=== PATIENT | male | born 1945 | race Caucasian/White ===

== ENCOUNTER 2025-05-14 06:42 | Inpatient (IN) | payer OTHER, MEDICARE ==
[~2025-05-14] VITALS: Ht 170.2 cm; Wt 87.7 kg
[~2025-05-14 06:42] MED LIST: DABI150C PO; GABA300C PO; HYDR-4383 PO; MAGN500C4 PO; METO50TA7 PO; TURMERIC
--- NOTE | 2025-05-14 07:21 | Physician Documentation ---
History of Present Illness ~ Chief Complaint: Flu Symptoms Stated Complaint: FLU Time Seen by MD: 06:59 HPI 80-year-old male, history of Parkinson's, traveling with his for a wedding, presenting with 4 days of fever and generalized weakness He reports that over the past 4 days he has been feeling generally ill. He reports having fevers, congestion, sore throat, productive cough with yellow spu ryan. He reports generalized weakness to the point today where he was not able to even get up and walk. He does report having a mild headache and pain in the muscles of his neck and shoulders. He reports pain in his joints. He feels generally achy and weak. No known sick contacts. No abdominal pain, nausea vomiting or diarrhea. No urinary symptoms. He thinks he has been eating and drinking okay. He does have a history of atrial fibrillation and is on blood thinners. He took Tylenol without relief. Medication Reconciliation Allergies: Coded Allergies: meloxicam (Verified Allergy, Unknown, 07/01/14) Scheduled Apixaban (Eliquis), 1 TAB PO Q12H, (Reported) Carbidopa/Levodopa (Carbidopa-Levo ER 25-100 Tab), 1 TAB PO HS, (Reported) Carbidopa/Levodopa (Carbidopa-Levo 25-100 Mg Odt), 2.5 TAB PO Q8H, (Reported) Docusate Sodium (Colace), 1 CAP PO DAILY, (Reported) Gabapentin (Gabapentin), 1 CAP PO HS, (Reported) Gabapentin (Gabapentin), 1 CAP PO BID, (Reported) Lisinopril (Lisinopril), 0.5 TAB PO DAILY, (Reported) Magnesium Oxide (Magnesium), 1 CAP PO DAILY, (Reported) Pravastatin Sodium (Pravastatin Sodium), 1 TAB PO DAILY, (Reported) Discontinued Medications Dabigatran Etexilate Mesylate (Pradaxa), 150 MG PO BID, (Reported) Discontinued Reason: patient no longer taking Gabapentin (Neurontin), 300 MG PO BID, (Reported) Discontinued Reason: patient no longer taking Hydrocodone/Acetaminophen ([place] 5-325 Tablet), 1 TABLET PO TID, (Reported) Discontinued Reason: patient no longer taking Magnesium Oxide (Magnesium), 2 CAP PO DAILY, (Reported) Discontinued Reason: patient no longer taking Metoprolol Succinate* (Toprol Xl*), 0.5 TABLET PO DAILY, (Reported) Discontinued Reason: patient no longer taking [Turmeric], (Reported) Discontinued Reason: patient no longer taking Past Medical History Past Medical History: Kidney Stones Past Surgical History: noncontributory Alcohol Use: None Lives with: Spouse Lives In: Home Review of Systems Constitutional: Reports: fever ENT: Reports: nose congestion, throat pain Respiratory: Reports: cough; Denies: shortness of breath Gastrointestinal: Reports: no symptoms reported Physical Exam Vital Signs: Temperature: 98.7, Source: Oral, Heart Rate: 103, Respiratory Ra te: 18, BP: 132/76, Pulse Oximetry: 95, Weight: 88.640 Oxygen Flow Rate: 0 Physical Exam General: This is a tired appearing elderly man, at bedside HEENT: Atraumatic, oropharynx appears dry. Mild generalized posterior oropharyngeal erythema without unilateral swelling or white exudates Neck: No swelling or tender lymphadenopathy. He does have generalized tenderness on palpation of the muscles of the neck and shoulder bilateral Heart: Mild tachycardic, appears irregular, heart rate around 100 during my exam Lungs: Diminished breath sounds bilateral, normal work of breathing, frequent harsh cough, normal oxygen saturation on room air Abdomen: Soft, nondistended, nontender all quadrants Extremities: Warm and well-perfused, no edema Neuro: Alert and oriented, generalized weakness but no focal weakness. He does have a mild tremor in his extremities Psychiatric: Appears tired but is Calm and cooperative with exam Progress Results/Orders Results/Orders Orders - NELLI REYNOLDS MD CMP (05/14/25 07:11) Urinalysis, Cult If Indicated (05/14/25 07:11) Chest,Single View (05/14/25 07:12) Covid19 Binax Poc Result Entry (05/14/25 07:12) Normal Saline 1000ml (Sodium Chloride 10 (05/14/25 09:00) Page Hospitalist (05/14/25 08:58) Hgb A1c (05/14/25 07:00) MG (05/14/25 07:00) PBNP (05/14/25 07:00) PHOS (05/14/25 07:00) Completed Orders - NELLI REYNOLDS MD Cbc/Diff (05/14/25 07:11) LA (05/14/25 07:11) Chest,Single View (05/14/25 07:12) Man Diff (05/14/25 07:00) Acetaminophen 325mg Tablet (Tylenol Tabl (05/14/25 09:50) Medications Received in ER Medications (Trade) Dose Ordered Sig/Penelope Route PRN Reason Start Time Stop Time Status Last Admin Dose Admin Sodium Chloride 1,000 ml @ 100 mls/hr Q10H IV 05/14/25 09:00 05/14/25 09:15 100 MLS/HR (Tylenol tablet) 650 mg ONCE ONCE PO 05/14/25 09:50 05/14/25 09:51 DC 05/14/25 10:36 650 MG Vital Signs 05/14/25 05/14/25 05/14/25 05/14/25 06:45 06:56 09:20 10:20 Temp 98.7 98.7 Pulse 105 103 99 102 Resp 19 18 14 22 B/P (MAP) 127/81 132/76 (94) 143/93 (110) Pulse Ox 95 95 98 97 O2 Delivery Room Air* O2 Flow Rate 0 0 0 0 FiO2 21 Laboratory Tests Test 05/14/25 07:00 05/14/25 07:05 White Blood Count 6.9 Red Blood Count 4.44 L Hemoglobin 14.4 Hematocrit 41.5 L Mean Corpuscular Volume 93.5 Mean Corpuscular Hemoglobin 32.3 H Mean Corpuscular Hemoglobin Concent 34.6 Red Cell Distribution Width 14.5 Platelet Count 141 Mean Platelet Volume 9.6 Neutrophils (%) (Auto) 73.7 Lymphocytes (%) (Auto) 6.8 L Monocytes (%) (Auto) 18.8 H Eosinophils (%) (Auto) 0.1 Basophils (%) (Auto) 0.6 Neutrophils # (Auto) 5.1 Lymphocytes # (Auto) 0.5 L Monocytes # (Auto) 1.3 H Eosinophils # (Auto) 0.0 Basophils # (Auto) 0.0 CBC Comment Differential Total Cells Counted 100 Neutrophils % (Manual) 80.0 H Band Neutrophils % 1.0 Lymphocytes % (Manual) 3.0 L Monocytes % (Manual) 16.0 H Platelet Estimate Normal Red Blood Cell Morphology Normal Basophilic Stippling Sodium Level 136 Potassium Level 3.7 Chloride Level 102 Carbon Dioxide Level 25.8 Anion Gap 8 Blood Urea Nitrogen 16 Creatinine 1.04 Estimated GFR/1.73 m2 69 BUN/Creatinine Ratio 15.4 Glucose Level 103 Lactic Acid Level 1.1 Calcium Level 8.1 L Total Bilirubin 1.1 H Aspartate Amino Transf (AST/SGOT) 29 Alanine Aminotransferase (ALT/SGPT) 13 Alkaline Phosphatase 58 Total Protein 6.5 Albumin 3.5 Globulin 3.0 Albumin/Globulin Ratio 1.2 Chemistry Comments SARS-CoV-2 Antigen (Rapid) Positive A EKG/XRAY/CT/US/VASC/MRI Chest X-Ray : Additional Comments I personally reviewed the x-ray, and it shows: No focal consolidation or pneumonia, no pulmonary edema, normal mediastinum Consults/PCP Consults/PCP : Additional Comment Consult: I spoke to the internal medicine service, for admission in the hospital Medical Decision Making Differential Dx:Considerations: Include: Dehydration, Electrolyte imbalance, Influenza, Meningitis, Pneumonia, Respiratory failure, Sepsis, UTI, Viral Syndrome Assessment 80-year-old male presenting with generalized weakness, with cough and congestion and fevers. His workup does show he has COVID, which is likely the over oxygen cause of all of his symptoms. Chest x-ray without pneumonia. Labs without dangerous dehydration or electrolyte derangement. Urinalysis pending. Overall, given his significant weakness and difficulty walking he is not safe for discharge home. He will be admitted to the medicine service, started him on IV fluids for hydration, and admitted for further care. Departure Disposition: ADMITTED INPATIENT Impression: Primary Impression: COVID-19 Additional Impressions: Generalized weakness Dehydration Referrals: NO PRIMARY CARE PROVIDER (PCP) Signature Scribe Signature: na Attestation: NELLI Guerrero MD May 14, 2025 07:21
[2025-05-14 07:33] LABS: BASOPHILS % (AUTO) 0.6 % (0-1); EOSINOPHILS % (AUTO) 0.1 % (0-6); HEMATOCRIT 41.5 % (42.0-52.0); HEMOGLOBIN 14.4 g/dl (14.0-17.9); LYMPHOCYTES # (AUTO) 0.5 X10'3 (1.1-4.8); LYMPHOCYTES % (AUTO) 6.8 % (21-51); MEAN CORPUSCULAR HEMOGLOBIN 32.3 PG (27.0-31.0); MEAN CORPUSCULAR HGB CONC 34.6 g/dL (33.0-36.5); MEAN CORPUSCULAR VOLUME 93.5 FL (78-98); MEAN PLATELET VOLUME 9.6 FL (7.4-10.4); MONOCYTES # (AUTO) 1.3 X10'3 (0-0.9); MONOCYTES % (AUTO) 18.8 % (2-12); NEUTROPHILS # (AUTO) 5.1 X10'3 (1.8-7.7); NEUTROPHILS % (AUTO) 73.7 % (42-75); PLATELET COUNT 141 X10'3 (140-440); RED BLOOD COUNT 4.44 X10'6 (4.70-6.10); RED CELL DISTRIBUTION WIDTH 14.5 % (11.5-14.5); WHITE BLOOD COUNT 6.9 X10'3 (4.5-11.0)
[2025-05-14 07:38] LABS: ALANINE AMINOTRANSFERASE 13 U/L (12-78); ALBUMIN 3.5 G/DL (3.4-5.0); ALBUMIN/GLOBULIN RATIO 1.2 (1.1-1.5); ALKALINE PHOSPHATASE 58 IU/L (46-116); ANION GAP 8 (8-16); ASPARTATE AMINO TRANSFERASE 29 U/L (10-37); BILIRUBIN,TOTAL 1.1 MG/DL (0.1-1.0); BLOOD UREA NITROGEN 16 MG/DL (7-18); BUN/CREATININE RATIO 15.4 (10.0-20.0); CALCIUM 8.1 MG/DL (8.5-10.1); CHLORIDE 102 MMOL/L (99-107); CREATININE 1.04 MG/DL (0.60-1.10); GLUCOSE 103 MG/DL (70-104); POTASSIUM 3.7 MMOL/L (3.5-5.1); SODIUM 136 MMOL/L (135-145); TOTAL CARBON DIOXIDE 25.8 MMOL/L (24-32); TOTAL PROTEIN 6.5 G/DL (6.4-8.2); eCRCL 53 ML/MIN; eGFR 69 ML/MIN
--- NOTE | 2025-05-14 08:14 | RADIOLOGY REPORT ---
EXAM: XR Chest, 1 View CLINICAL INDICATION: Pain TECHNIQUE: Frontal view of the chest. COMPARISON: No relevant prior studies available. FINDINGS: LUNGS AND PLEURAL SPACES: Unremarkable. No consolidation. No pneumothorax. HEART: Unremarkable. No cardiomegaly. MEDIASTINUM: Unremarkable. Normal mediastinal contour. BONES/JOINTS: Unremarkable. No acute fracture. IMPRESSION: No acute cardiopulmonary process.
[2025-05-14 08:18] LABS: PLATELET ESTIMATE NORMAL; TOTAL CELLS COUNTED 100
[2025-05-14] MEDS: normal saline 1000ml 1,000 ML IV SCH ×2 (09:15→10:05)
--- NOTE | 2025-05-14 10:00 | HISTORY AND PHYSICAL ---
History & Physical Providers to Chief complaint, cough fever History of Present Illness Reason for Admit\Complaint: As above History of Present Illness This is a 80-year-old male, history of Parkinson's, atrial fibrillation on Pradaxa at home, history of chronic pain syndrome on opioids, history of kidney stones, bilateral renal cysts, hypertension, presented today to emergency department chief complaint fever cough, in addition patient is traveling with his for a wedding, presenting with 4 days of fever and generalized weakness He reports that over the past 4 days he has been feeling generally ill. He reports having fevers, congestion, sore throat, productive cough with yellow sputum. He reports generalized weakness to the point today where he was not able to even get up and walk. He does report having a mild headache and pain in the muscles of his neck and shoulders. He reports pain in his joints. He feels generally achy and weak. No known sick contacts. No abdominal pain, nausea vomiting or diarrhea. No urinary symptoms. He thinks he has been eating and drinking okay. He does have a history of atrial fibrillation and is on blood thinners. He took Tylenol without relief. In emergency department he was evaluated by physician was diagnosed with COVID infection, and decision was made to admit patient for further evaluation and treatment, no additional complaint or concern. Allergies: Coded Allergies: meloxicam (Verified Allergy, Unknown, 07/01/14) Active prescriptions I reviewed reconciled Home Medications Home Medications Active Reported [Turmeric] Magnesium (Magnesium Oxide) 500 Mg Capsule 2 Cap PO DAILY Toprol Xl* (Metoprolol Succinate) 50 Mg Tab.sr.24h 0.5 Tablet PO DAILY Pradaxa (Dabigatran Etexilate Mesylate) 150 Mg Capsule 150 Mg PO BID Neurontin (Gabapentin) 300 Mg Capsule 300 Mg PO BID [place] 5-325 Tablet (Hydrocodone/Acetaminophen) 1 Each Tablet 1 Tablet PO TID Past Medical History Past Medical History As in HPI Past Surgical History Surgical History Comment As in HPI Past Social History Social History Comment Deny illicit drug abuse tobacco alcohol use live with the family good social support Health Maintenance Health Maintenance Noncontributory ROS ROS Constitutional : positive for fever, chills and or weakness. No diaphoresis. Allergic/Immunologic, no lymphadenopathy, no hives, no skin eruptions. Eyes, no recent visual changes, no eye pain, no photophobia. Ears, nose, mouth, throat, no sore throat, no nosebleed, no ear pain. Cardiovascular, no palpitations, skipped beats, chest pain, no peripheral edema, Respiratory, no dyspnea, orthopnea, cough, hemoptysis, chest wall pain. Gastrointestinal, no abdominal pain, nausea, vomiting, constipation or diarrhea. : no dysuria, hematuria, pelvic pain, urethral d/c. Endocrine, no polyuria, polydipsia, recent unintentional weight gain or loss. Hematologic/Lymphatic, no petechiae, no enlarged lymph nodes, no bone pain. Integumentary, no rash, no skin lesions, Musculoskeletal, no muscle aches, or pain, no muscle cramps, no recent change in gait Neurological, no dizziness, no headache, no syncope, no paresthesia. Psychiatric, no delusions, visual hallucinations, or hearing hallucinations. ROS - in rest is as in HPI. Exam Vitals: Vital Signs Date Time Temp Pulse Resp B/P (MAP) Pulse Ox O2 Delivery O2 Flow Rate FiO2 05/14/25 09:20 99 14 143/93 (110) 98 0 05/14/25 06:56 98.7 Vital signs, stable ,afebrile. Pulse Oximetry reflects adequate oxygenation. BMI is 30, weight 88 kg General: well developed, well nourished. Awake , alert, and oriented x4, resting comfortably in the bed, in no acute distress . Skin: Warm, dry, no pallor, no rash or petechiae. HEENT: Atraumatic, normocephalic, EOMI, anicteric sclera B; pink conjunctiva; PERRLA, normal oropharynx, moist oral and nasal mucosa. Tympanic membrane , nose , throat clear. Neck: Trachea midline. Supple, full range of motion, no JVD, bruit , hepatojugular reflex , lymphadenopathy or masses, or other lesions Cardiac: Regular rhythm, regular rate no murmurs, rubs, or gallops. Normal S1 and S2, no S3 noticed. PMI is normal. Respiratory: Equal breath sounds bilaterally, no tachypnea; lungs clear to auscultation bilaterally, no wheezing ,rub or rales, or crackles. Chest wall is symmetric and without deformity. No signs of trauma. Chest wall is nontender. No signs of respiratory distress. Resonance is normal upon percussion bilaterally. Gastrointestinal: Abdomen symmetric, non-distended, soft, non-tender, normal bowel sounds x4 quadrant, normoactive, no hepatosplenomegaly , no masses , no bruit, no flank pain bilaterally. No voluntary guarding, rebound, or rigidity. No tenderness to percussion. No pulsatile masses. Equal femoral pulses. No Hahn's sign or McBurney point tenderness. Back; no CVA tenderness bilaterally, no deformities. Neck and back are without deformity as well. No tenderness noted on palpation of the spinous processes. Spinous processes are midline. Cervical, thoracic, and lumbar paraspinal muscles are not tender and are without spasm. : normal external genitalia, without lesions, swelling, masses or tenderness. Musculoskeletal: Extremities, normal range of motion, non-tender, muscle strength 5/5 x 4. Negative Homans signs bilaterally on lower extremity. Distal pulses full symmetrical, no clubbing, cyanosis , edema. Neurological: Speech is clear, alert, and oriented x 4. No motor or sensory deficit, deep tendon reflexes normal, cerebellar intact. Cranial nerves II-XII intact. Psych: Alert and or appropriate, normal affect. Vascular: Good distal pulses, which are equal x4; capillary refill less than 2 seconds. Lymphatic, no lymphadenopathy. Diagnostic Data Last Recorded Lab Results: 05/14/25 0700 05/14/25 0700 Advance Care Planning Advanced Care plannin - 30 Minutes Additional Plan Assessment COVID pneumonitis Hypophosphatemia Dehydration associated with ketonuria Chronic pain syndrome on opioids at home Generalized weakness associated with deconditioning Atrial fibrillation controlled ventricular rate on Pradaxa at home Hypertension fair control Gait disorder, antalgic Additional comorbidities, history of kidney stones and bilateral renal cyst Plan IV antibiotics, steroids, fluids keep patient well hydrated euvolemic Correct electrolytes Additional lab work pending PT evaluation and treatment Started on Paxlovid per Dr. Cervantes recommendations Reconciled home medications DVT gastropathy prophylaxis addressed, patient on Pradaxa Sepsis Screening Reassessment Date: May 14, 2025 Date of Service: May 14, 2025 Billing Provider: CHAPITO DOE MD Common Visit Codes: [id number] INP/OBS CARE (HIGH) Secondary Visit Codes: [id number] CARE PLAN 30 MINUTES CHAPITO DOE MD May 14, 2025 10:00
[2025-05-14] MEDS ORDERED: acetaminophen 325mg tablet PO PRN ×2 (10:05)
[2025-05-14] MEDS ORDERED: diphenhydrAMINE 25mg capsule PO PRN (10:05)
[2025-05-14] MEDS ORDERED: HYDROcodone/acetaminophen 5mg/325mg tablet PO PRN (10:05)
[2025-05-14] MEDS ORDERED: ondansetron/PF 4mg/2ml inj IV PRN (10:05)
[2025-05-14] MEDS ORDERED: magnesium hydroxide 30ml (MOM) UD suspension PO PRN (10:05)
[2025-05-14] MEDS ORDERED: mag hydrox/Alum hydrox/simeth 30ml oral suspension PO PRN (10:05)
[2025-05-14] MEDS ORDERED: bisacodyl 10mg suppository rectal RC PRN (10:05)
[2025-05-14] MEDS ORDERED: acetaminophen 650mg rectal suppository RC PRN (10:05)
[2025-05-14] MEDS ORDERED: ipratropium/albuterol 3ml nebule NEB PRN (10:05)
[2025-05-14] MEDS ORDERED: ondansetron 4mg rapidly disintigrating tab PO PRN (10:05)
[2025-05-14] MEDS ORDERED: morphine 2 MG/ML inj. syringe IV PRN (10:05)
[2025-05-14] MEDS ORDERED: diphenhydrAMINE 50 mg/ml inj IV PRN (10:05)
[2025-05-14 10:20] VITALS: PULSE 102; RESP 22; O2SAT 97
[2025-05-14] MEDS: acetaminophen 325mg tablet PO ONE (10:36)
[2025-05-14] MEDS ORDERED: LISI20TA28 PO (10:45)
[2025-05-14] MEDS ORDERED: APIX5TAB3 PO (10:45)
[2025-05-14] MEDS ORDERED: CARB1TAB44 PO (10:45)
[2025-05-14] MEDS ORDERED: CARB1TAB41 PO (10:45)
[2025-05-14] MEDS ORDERED: GABA-535 PO (10:45)
[2025-05-14] MEDS ORDERED: DOCU-148 PO (10:45)
[2025-05-14] MEDS ORDERED: GABA-530 PO (10:45)
[2025-05-14] MEDS ORDERED: PRAV40TA3 PO (10:45)
[2025-05-14 10:57] LABS: MAGNESIUM 2.2 MG/DL (1.5-2.4); PHOSPHORUS 1.6 MG/DL (2.3-4.5)
[2025-05-14 11:15] LABS: HEMOGLOBIN A1C 5.1 % (4.5-6.2)
[2025-05-14 11:16] LABS: APTT 36 SECONDS (22-32); INR 1.3 INR
--- NOTE | 2025-05-14 11:21 | RADIOLOGY REPORT ---
Procedure: CT CT CHEST Reason for study/Clinical History: sepsis.. Comparison Study: Chest radiograph dated the same TECHNIQUE: Multidetector CT of the chest was performed from the lung apices to the upper abdomen with out the use of intravenous contract. Axial, coronal and sagittal multiplanar reformats were performed . Radiation Dose Information: CT Dose: CTDI volume is 17 mGy. Dose-length product is 653 mGy*cm The dose indicators for CT are the volume Computed Tomography (CT) Dose Index (CTDIvol) and the Dose Length Product (DLP), and are measured in units of mGy and mGy-cm, respectively. These indicators are not patient dose, but values generated from the CT scanner acquisition factors. The report includes radiation exposure data for exposures received during this examination. FINDINGS: Lower neck: Unremarkable. Lungs: No focal consolidation. No suspicious pulmonary nodule. Mild centrilobular emphysema. Heart/Vascular Structures: Cardiomegaly. Coronary artery calcifications. Vascular calcifications of t he aorta. Lymph Nodes: No adenopathy Pleura: No pleural effusion or significant pneumothorax. Musculoskeletal: No acute osseous abnormality. Degenerative changes of the spine. Soft tissues: Normal. Upper abdomen: Bilateral renal cysts IMPRESSION: No acute intrathoracic abnormality. Radiation optimization: All CT scans at this facility use at least one of these dose optimization jeimy hniques: automated exposure control mA and/or kV adjustment per patient size (includes targeted exam s where dose is matched to clinical indication) or iterative reconstruction.
[2025-05-14 12:25] LABS: PRO BRAIN NATRIURETIC PEPTIDE 617 PG/ML (0-450)
[2025-05-14] MEDS ORDERED: albuterol 2.5 MG/3 ML nebule NEB PRN (12:40)
[2025-05-14 12:42] LABS: BILIRUBIN,URINE NEGATIVE (Neg); CLARITY,URINE CLEAR (Clear); COLOR,URINE YELLOW (Yellow); GLUCOSE, URINE NEGATIVE (Neg); KETONES,URINE TRACE mg/dl (Neg); LEUKOCYTE ESTERASE ,URINE NEGATIVE (Neg); NITRITES, URINE NEGATIVE (Neg); OCCULT BLOOD,URINE TRACE-INTACT (Neg); PROTEIN,URINE NEGATIVE (Neg)
[2025-05-14 12:43] LABS: UA COLLECTION TYPE CLN CATCH MIDSTREAM
[2025-05-14 12:50] LABS: BACTERIA,URINE FEW /HPF (Neg); MUCUS STRANDS NONE SEEN /LPF (Neg); SQUAMOUS EPITHELIAL CELL,UR NONE SEEN /LPF (FEW); TRANSITIONAL EPI CELLS,URINE FEW /HPF; WBC,URINE 0-4 /HPF (0-4)
[2025-05-14 14:30] VITALS: BP 142/80; PULSE 86; RESP 17; TEMP 98.4; O2SAT 98
[2025-05-14] MEDS ORDERED: albuterol 60 PUFF/8GM Inhaler (90mcg/1 puff) IH PRN (15:23)
[2025-05-14] MEDS ORDERED: Neutra Phos packet PO PRN (16:40)
[2025-05-14] MEDS ORDERED: sodium phosphate inj. 30 MMOL in dextrose 5%-water 250 ML IV PRN (16:40)
[2025-05-14] MEDS ORDERED: sodium phosphate inj. 15 MMOL in dextrose 5%-water 250 ML IV PRN (16:40)
[2025-05-14 18:00] VITALS: BP 155/81; PULSE 116; RESP 16; TEMP 97.5; O2SAT 97
[2025-05-14] MEDS: docusate sod 100mg capsule PO SCH (20:14)
[2025-05-14] MEDS: dexamethasone 4mg/ml inj IV SCH (20:14)
[2025-05-14] MEDS: NIRMATRELVIR/RITONAVIR 300/100mg - 1 EACH TAB.DS.PK PO SCH (20:14)
[2025-05-14] MEDS ORDERED: temazepam 15mg capsule PO PRN (21:00)
[2025-05-14 22:00] VITALS: BP 166/93; PULSE 101; RESP 20; TEMP 98.4; O2SAT 96
[2025-05-15] VITALS (11 sets, daily range): BP systolic 143–182; BP diastolic 70–98; PULSE 74–121; RESP 11–24; TEMP 97.1–97.8; O2SAT 94–97
[2025-05-15 04:41] LABS: BASOPHILS % (AUTO) 0.3 % (0-1); EOSINOPHILS % (AUTO) 0 % (0-6); HEMATOCRIT 42.3 % (42.0-52.0); HEMOGLOBIN 14.8 g/dl (14.0-17.9); LYMPHOCYTES # (AUTO) 0.4 X10'3 (1.1-4.8); LYMPHOCYTES % (AUTO) 6.6 % (21-51); MEAN CORPUSCULAR HEMOGLOBIN 32.6 PG (27.0-31.0); MEAN CORPUSCULAR HGB CONC 34.9 g/dL (33.0-36.5); MEAN CORPUSCULAR VOLUME 93.4 FL (78-98); MEAN PLATELET VOLUME 9.2 FL (7.4-10.4); MONOCYTES # (AUTO) 0.4 X10'3 (0-0.9); MONOCYTES % (AUTO) 6.6 % (2-12); NEUTROPHILS # (AUTO) 4.7 X10'3 (1.8-7.7); NEUTROPHILS % (AUTO) 86.5 % (42-75); PLATELET COUNT 145 X10'3 (140-440); RED BLOOD COUNT 4.53 X10'6 (4.70-6.10); RED CELL DISTRIBUTION WIDTH 14.4 % (11.5-14.5); WHITE BLOOD COUNT 5.5 X10'3 (4.5-11.0)
[2025-05-15 04:57] LABS: ANION GAP 8 (8-16); BLOOD UREA NITROGEN 13 MG/DL (7-18); CHLORIDE 104 MMOL/L (99-107); GLUCOSE 139 MG/DL (70-104); POTASSIUM 3.5 MMOL/L (3.5-5.1); SODIUM 137 MMOL/L (135-145); TOTAL CARBON DIOXIDE 24.7 MMOL/L (24-32)
[2025-05-15 04:58] LABS: ALANINE AMINOTRANSFERASE 27 U/L (12-78); ALBUMIN 3.3 G/DL (3.4-5.0); ALKALINE PHOSPHATASE 58 IU/L (46-116); ASPARTATE AMINO TRANSFERASE 31 U/L (10-37); BILIRUBIN,TOTAL 0.8 MG/DL (0.1-1.0); BUN/CREATININE RATIO 15.7 (10.0-20.0); CALCIUM 7.9 MG/DL (8.5-10.1); CHOL/HDL RATIO 2.4 (0.00-4.99); CHOLESTEROL 120 MG/DL (0-200); CREATININE 0.83 MG/DL (0.60-1.10); HDL CHOLESTEROL 50 MG/DL (35-60); LDL CHOLESTEROL 56 MG/DL (50-100); TOTAL PROTEIN 6.6 G/DL (6.4-8.2); TRIGLYCERIDES 50 MG/DL (20-135); eCRCL 66 ML/MIN; eGFR 89 ML/MIN
[2025-05-15] MEDS: HYDROcodone/acetaminophen 10/325mg tab PO PRN (05:44)
[2025-05-15] MEDS ORDERED: labetalol 20mg/4ml (5mg/ml) syringe IV ONE (07:00)
[2025-05-15] MEDS ORDERED: metoprolol tartrate 1mg/ml inj IV ONE (07:00)
[2025-05-15] MEDS: CefTRIAXone/D5W-Rocephin 1gm 50 ML IV SCH (07:41)
[2025-05-15] MEDS ORDERED: lisinopril 20mg tablet PO SCH (08:00)
[2025-05-15] MEDS: azithromycin/NS 500mg/250ml 250 ML IV SCH (09:13)
[2025-05-15] MEDS: diltiazem 5mg/ml 5ml inj. IV ONE (09:58)
[2025-05-15] MEDS ORDERED: [UNRECOGNIZED DRUG - OTHER] PO (11:27)
[2025-05-15] MEDS: lisinopril 20mg tablet PO SCH (15:21)
[2025-05-15] MEDS: carbidoba-levodopa 25-100mg tablet PO SCH (15:21)
[2025-05-15] MEDS: apixaban 5mg tablet PO SCH (15:22)
--- NOTE | 2025-05-15 17:21 | PROGRESS NOTE ---
Daily Progress Note Providers to CC He will better today, better appetite, better sleep ~ Central Line/PICC still needed: No Singh-Non Protocol Singh Indications Met/Not Met: F/C Indications Not Met Antibiotic Timeout Antibiotic Ordered?: Yes MRSA Education MRSA Education Provided to pt: Yes Subjective As above Objective Vital Signs Date Time Temp Pulse Resp B/P (MAP) Pulse Ox O2 Delivery O2 Flow Rate FiO2 05/15/25 16:19 77 16 97 Room Air* 0 21 05/15/25 15:33 97.5 177/90 (119) Vital signs, stable ,afebrile. Pulse Oximetry reflects adequate oxygenation, high blood pressure noticed General: well developed, well nourished. Awake , alert, and oriented x4, resting comfortably in the bed, in no acute distress . Skin: Warm, dry, no pallor, no rash or petechiae. HEENT: Atraumatic, normocephalic, EOMI, anicteric sclera B; pink conjunctiva; PERRLA, normal oropharynx, moist oral and nasal mucosa. Tympanic membrane , nose , throat clear. Neck: Trachea midline. Supple, full range of motion, no JVD, bruit , hepatojugular reflex , lymphadenopathy or masses, or other lesions Cardiac: Regular rhythm, regular rate no murmurs, rubs, or gallops. Normal S1 and S2, no S3 noticed. PMI is normal. Respiratory: Equal breath sounds bilaterally, no tachypnea; lungs clear to auscultation bilaterally, no wheezing ,rub or rales, or crackles. Chest wall is symmetric and without deformity. No signs of trauma. Chest wall is nontender. No signs of respiratory distress. Resonance is normal upon percussion bilaterally. Gastrointestinal: Abdomen symmetric, non-distended, soft, non-tender, normal bowel sounds x4 quadrant, normoactive, no hepatosplenomegaly , no masses , no bruit, no flank pain bilaterally. No voluntary guarding, rebound, or rigidity. No tenderness to percussion. No pulsatile masses. Equal femoral pulses. No Hahn's sign or McBurney point tenderness. Back; no CVA tenderness bilaterally, no deformities. Neck and back are without deformity as well. No tenderness noted on palpation of the spinous processes. Spinous processes are midline. Cervical, thoracic, and lumbar paraspinal muscles are not tender and are without spasm. : normal external genitalia, without lesions, swelling, masses or tenderness. Musculoskeletal: Extremities, normal range of motion, non-tender, muscle strength 5/5 x 4. Negative Homans signs bilaterally on lower extremity. Distal pulses full symmetrical, no clubbing, cyanosis , edema. Neurological: Speech is clear, alert, and oriented x 4. No motor or sensory deficit, deep tendon reflexes normal, cerebellar intact. Cranial nerves II-XII intact. Psych: Alert and or appropriate, normal affect. Vascular: Good distal pulses, which are equal x4; capillary refill less than 2 seconds. Lymphatic, no lymphadenopathy. Result Diagram: 05/15/25 0413 05/15/25 0413 Coagulation Studies Laboratory Tests Test 05/14/25 10:44 Prothrombin Time 13.0 SECONDS (9.0-12.0) H INR International Normalized Ratio 1.3 INR Activated Partial Thromboplast Time 36 SECONDS (22-32) H Coagulation Comments Problem\Assessment\Plan Assessment COVID pneumonitis Parkinson's disease Hypophosphatemia Dehydration associated with ketonuria Chronic pain syndrome on opioids at home Generalized weakness associated with deconditioning Atrial fibrillation controlled ventricular rate on Pradaxa at home Hypertension fair control Gait disorder, antalgic Additional comorbidities, history of kidney stones and bilateral renal cyst Plan IV antibiotics, steroids, fluids keep patient well hydrated euvolemic Correct electrolytes Additional lab work pending PT evaluation and treatment Started on Paxlovid per Dr. Cervantes recommendations Reconciled home medications DVT gastropathy prophylaxis addressed, patient on Pradaxa Sepsis Screening Reassessment Date: May 15, 2025 Date of Service: May 15, 2025 Billing Provider: CHAPITO DOE MD Common Visit Codes: [id number] INP/OBS CARE(HIGH) CHAPITO DOE MD May 15, 2025 17:21
[2025-05-15] MEDS: cloNIDine 0.1 mg tablet PO SCH (18:07)
[2025-05-15] MEDS ORDERED: apixaban 5mg tablet PO SCH ×2 (20:00)
[2025-05-15] MEDS: gabapentin 400mg capsule PO SCH (21:03)
[2025-05-15] MEDS: gabapentin 100mg capsule PO SCH (21:03)
[2025-05-15] MEDS: carbidopa/levodopa 25/100mg CR tablet PO SCH (21:04)
[2025-05-15] MEDS: hydrALAZINE 20mg/ml inj. IV PRN (22:51)
[2025-05-16 02:00] VITALS: BP 150/75; PULSE 76; RESP 15; TEMP 97.8; O2SAT 96
[2025-05-16 06:00] VITALS: BP 160/94; PULSE 108; RESP 24; TEMP 97.3; O2SAT 97
[2025-05-16 07:14] LABS: BASOPHILS % (AUTO) 0.1 % (0-1); EOSINOPHILS % (AUTO) 0 % (0-6); HEMATOCRIT 39.3 % (42.0-52.0); HEMOGLOBIN 13.9 g/dl (14.0-17.9); LYMPHOCYTES # (AUTO) 0.6 X10'3 (1.1-4.8); LYMPHOCYTES % (AUTO) 9.2 % (21-51); MEAN CORPUSCULAR HEMOGLOBIN 32.7 PG (27.0-31.0); MEAN CORPUSCULAR HGB CONC 35.3 g/dL (33.0-36.5); MEAN CORPUSCULAR VOLUME 92.5 FL (78-98); MEAN PLATELET VOLUME 9.2 FL (7.4-10.4); MONOCYTES # (AUTO) 0.5 X10'3 (0-0.9); MONOCYTES % (AUTO) 6.7 % (2-12); NEUTROPHILS # (AUTO) 5.8 X10'3 (1.8-7.7); PLATELET COUNT 173 X10'3 (140-440); RED BLOOD COUNT 4.24 X10'6 (4.70-6.10); RED CELL DISTRIBUTION WIDTH 14.4 % (11.5-14.5)
[2025-05-16 07:26] LABS: ALANINE AMINOTRANSFERASE 7 U/L (12-78); ALBUMIN 3.1 G/DL (3.4-5.0); ALKALINE PHOSPHATASE 51 IU/L (46-116); ANION GAP 8 (8-16); ASPARTATE AMINO TRANSFERASE 32 U/L (10-37); BILIRUBIN,TOTAL 0.6 MG/DL (0.1-1.0); BLOOD UREA NITROGEN 21 MG/DL (7-18); BUN/CREATININE RATIO 23.9 (10.0-20.0); CALCIUM 8.2 MG/DL (8.5-10.1); CHLORIDE 107 MMOL/L (99-107); CREATININE 0.88 MG/DL (0.60-1.10); GLUCOSE 149 MG/DL (70-104); POTASSIUM 3.8 MMOL/L (3.5-5.1); SODIUM 141 MMOL/L (135-145); TOTAL CARBON DIOXIDE 26.3 MMOL/L (24-32); TOTAL PROTEIN 6.2 G/DL (6.4-8.2); eCRCL 63 ML/MIN; eGFR 83 ML/MIN
[2025-05-16] MEDS ORDERED: non-formulary drug (Magnesium Oxide (Magnesium) 1 CAP) PO SCH (08:00)
[2025-05-16] MEDS ORDERED: docusate sod 100mg capsule PO SCH (08:00)
[2025-05-16] MEDS ORDERED: lisinopril 10 MG tablet PO SCH (08:00)
[2025-05-16 08:18] VITALS: PULSE 97; RESP 16; O2SAT 95
[2025-05-16] MEDS: pravastatin 40mg tablet PO SCH (08:32)
[2025-05-16] MEDS ORDERED: LISI20TA28 PO (09:47)
[2025-05-16 11:06] VITALS: BP 144/82; PULSE 78; RESP 17; TEMP 98.7; O2SAT 95
--- NOTE | 2025-05-16 16:31 | DISCHARGE SUMMARY ---
Discharge Summary Providers to No new complaint today, asking to be discharged home for family emergency reasons ~ Discharge Summary Assessment COVID pneumonitis Hypophosphatemia Dehydration associated with ketonuria Chronic pain syndrome on opioids at home Generalized weakness associated with deconditioning Atrial fibrillation controlled ventricular rate on Pradaxa at home Hypertension fair control Gait disorder, antalgic Additional comorbidities, history of kidney stones and bilateral renal cyst Admission Diagnosis: Covid ; pneumonitis Admission Diagnosis Comment: COVID pneumonitis Hypophosphatemia Dehydration associated with ketonuria Chronic pain syndrome on opioids at home Generalized weakness associated with deconditioning Atrial fibrillation controlled ventricular rate on Pradaxa at home Hypertension fair control Gait disorder, antalgic Additional comorbidities, history of kidney stones and bilateral renal cyst Hospital Course DATE OF ADMISSION: May 14, 2024 DATE OF DISCHARGE: May 16, 2024 Discharge Diagnosis\Comment: COVID pneumonitis Hypophosphatemia Dehydration associated with ketonuria Chronic pain syndrome on opioids at home Generalized weakness associated with deconditioning Atrial fibrillation controlled ventricular rate on Pradaxa at home Hypertension fair control Gait disorder, antalgic Additional comorbidities, history of kidney stones and bilateral renal cyst Operations\Procedures: Non Consultants: Non Complications: Non Condition on DC: Stable Discharge Summary: This is a 80-year-old male, history of Parkinson's, atrial fibrillation on Pradaxa at home, history of chronic pain syndrome on opioids, history of kidney stones, bilateral renal cysts, hypertension, presented today to emergency depar tment chief complaint fever cough, in addition patient is traveling with his for a wedding, presenting with 4 days of fever and generalized weakness, He reports that over the past 4 days he has been feeling generally ill. He reports having fevers, congestion, sore throat, productive cough with yellow sputum. He reports generalized weakness to the point today where he was not able to even get up and walk. He does report having a mild headache and pain in the muscles of his neck and shoulders. He reports pain in his joints. He feels generally achy and weak.No known sick contacts. No abdominal pain, nausea vomiting or diarrhea. No urinary symptoms. He thinks he has been eating and drinking okay, He does have a history of atrial fibrillation and is on blood thinners.He took Tylenol without relief. In emergency department he was evaluated by physician was diagnosed with COVID infection, and decision was made to admit patient for further evaluation and treatment, no additional complaint or concern. After admission patient was extensively evaluated treated today he feels fine asking to be discharged home for emergency family reasons, medication reconciled he will be discharged in stable condition, follow-up PCP in the morning, return to emergency department if condition worsens, today on physical exam, Vital signs, stable ,afebrile. Pulse Oximetry reflects adequate oxygenation. General: well developed, well nourished. Awake , alert, and oriented x4, resting comfortably in the bed, in no acute distress . Skin: Warm, dry, no pallor, no rash or petechiae. HEENT: Atraumatic, normocephalic, EOMI, anicteric sclera B; pink conjunctiva; PERRLA, normal oropharynx, moist oral and nasal mucosa. Tympanic membrane , nose , throat clear. Neck: Trachea midline. Supple, full range of motion, no JVD, bruit , hepatojugular reflex , lymphadenopathy or masses, or other lesions Cardiac: Regular rhythm, regular rate no murmurs, rubs, or gallops. Normal S1 and S2, no S3 noticed. PMI is normal. Respiratory: Equal breath sounds bilaterally, no tachypnea; lungs clear to auscultation bilaterally, no wheezing ,rub or rales, or crackles. Chest wall is symmetric and without deformity. No signs of trauma. Chest wall is nontender. No signs of respiratory distress. Resonance is normal upon percussion bilaterally. Gastrointestinal: Abdomen symmetric, non-distended, soft, non-tender, normal bowel sounds x4 quadrant, normoactive, no hepatosplenomegaly , no masses , no bruit, no flank pain bilaterally. No voluntary guarding, rebound, or rigidity. No tenderness to percussion. No pulsatile masses. Equal femoral pulses. No Hahn's sign or McBurney point tenderness. Back; no CVA tenderness bilaterally, no deformities. Neck and back are without deformity as well. No tenderness noted on palpation of the spinous processes. Spinous processes are midline. Cervical, thoracic, and lumbar paraspinal muscles are not tender and are without spasm. : normal external genitalia, without lesions, swelling, masses or tenderness. Musculoskeletal: Extremities, normal range of motion, non-tender, muscle strength 5/5 x 4. Negative Homans signs bilaterally on lower extremity. Distal pulses full symmetrical, no clubbing, cyanosis , edema. Neurological: Speech is clear, alert, and oriented x 4. No motor or sensory deficit, deep tendon reflexes normal, cerebellar intact. Cranial nerves II-XII intact. Psych: Alert and or appropriate, normal affect. Vascular: Good distal pulses, which are equal x4; capillary refill less than 2 seconds. Lymphatic, no lymphadenopathy. *Problems/Diagnosis: (1) COVID-19 Status: Acute (2) Generalized weakness Status: Acute Total Time Spent on D/C: > 30 Minutes Date of Service: May 16, 2025 Billing Provider: CHAPITO DOE MD Common Visit Codes: 90822-VJB/OBS DISCH DAY >30min CHAPITO DOE MD May 16, 2025 16:31
== END 2025-05-16 13:22 | disposition home or self-care (01) | DRG 179 ==
LOC: ER 06:42 → ED HOLD 10:10 → SUR 3N 14:34 → PCU 3S 05-15 09:45
PROVIDERS: ADMIT Family Medicine; ATTEND Family Medicine
DX: U07.1 COVID-19 (principal); E86.0 Dehydration; E78.5 Hyperlipidemia, unspecified; J98.4 Other disorders of lung; G20.A1 Parkinson's disease without dyskinesia, without mention of fluctuations; I10 Essential (primary) hypertension; G89.4 Chronic pain syndrome; E83.39 Other disorders of phosphorus metabolism; I48.91 Unspecified atrial fibrillation; Z79.01 Long term (current) use of anticoagulants; Z79.899 Other long term (current) drug therapy
CPT/HCPCS: 36415; 71045; 71250; 80053; 80061; 81001; 83036; 83605; 83735; 83880; 84100; 84484; 85007; 85025; 85610; 85730; 87040; 87081; 87811; 94760; 96361; 96374; 99285; A6590; G0378; J0360; J0456; J0696; J1100; J3490; J7030